=== PATIENT | male | born 1975 | race Caucasian/White ===

== ENCOUNTER 2017-09-26 18:20 | Inpatient (IN) | payer SELFPAY ==
[~2017-09-26] VITALS: Ht 165.1 cm; Wt 85.3 kg
--- NOTE | 2017-09-26 19:50 | NUR ---
PT TO ER BED
--- NOTE | 2017-09-26 20:00 | NUR ---
pt is in bed #15 c/o abd pain. pt is writhing in the bed, guarding his lower abd. pt is on the monitor and continuous pulse ox.
[2017-09-26] MEDS ORDERED: FAMOTIDINE/PF INJ 20 MG/2 ML VIAL IV ONE ×2 (20:30→20:44)
[2017-09-26] MEDS ORDERED: MAG HYDROX/AL HYDROX/SIMETH 30 ML UDC PO ONE (20:30)
[2017-09-26] MEDS ORDERED: IV NS 0.9% 1,000 ML BAG IV ONE (20:30)
[2017-09-26 20:35] LABS: BASOPHILS # (AUTO) 0.5 /CMM (0.0-0.2); BASOPHILS % (AUTO) 2.7 % (0.0-2.0); EOSINOPHILS # (AUTO) 0.5 /CMM (0.0-0.7); EOSINOPHILS % (AUTO) 3.1 % (0.0-6.0); HEMATOCRIT 37 % (39-51); HEMOGLOBIN 12.3 g/dL (13.5-17.5); LYMPHOCYTES # (AUTO) 3.2 /CMM (0.8-4.8); LYMPHOCYTES % (AUTO) 18.9 % (20.0-44.0); MEAN CORPUSCULAR HEMOGLOBIN 28 PG (26.0-33.0); MEAN CORPUSCULAR HGB CONC 33 g/dl (31.0-36.0); MEAN CORPUSCULAR VOLUME 83 fL (80-96); MONOCYTES # (AUTO) 1.4 /CMM (0.1-1.30); MONOCYTES % (AUTO) 8.4 % (2.0-12.0); NEUTROPHILS # (AUTO) 11.6 /CMM (1.8-8.9); NEUTROPHILS % (AUTO) 66.9 % (43.0-81.0); PLATELET COUNT (AUTO) 529 /CMM (150-450); RDW COEFFICIENT OF VARIATION 12.6 (11.5-15.0); RED BLOOD CELL COUNT(AUTO) 4.47 MIL/uL (4.5-6.0); WHITE BLOOD COUNT (AUTO) 17.2 K/uL (4.3-11.0)
[2017-09-26] MEDS ORDERED: MAG HYDROX/AL HYDROX/SIMETH 30 ML UDC ONE (20:44)
[2017-09-26 20:48] LABS: CALCIUM, SERUM 8.2 mg/dL (8.5-10.1); CREATININE 0.9 mg/dL (0.6-1.3); POTASSIUM 3.5 mmol/L (3.5-5.1)
[2017-09-26 20:54] LABS: ALBUMIN 3.3 g/dL (3.4-5.0); BILIRUBIN,TOTAL 0.2 mg/dL (0.2-1.0); TOTAL PROTEIN, SERUM 7.3 g/dL (6.4-8.2)
--- NOTE | 2017-09-26 23:20 | NUR ---
pt appears to be resting comfortably. nad noted. resp even and unlabored. will continue to monitor the pt.
[2017-09-26 23:35] LABS: APPEARANCE,URINE CLEAR (CLEAR); BILIRUBIN,URINE NEGATIVE (NEGATIVE); BLOOD, URINE NEGATIVE Ery/uL (NEGATIVE); COLOR,URINE YELLOW (YELLOW); KETONES,URINE 1+ (NEGATIVE); LEUKOCYTE ESTERASE ,URINE NEGATIVE (NEGATIVE); NITRITE, URINE NEGATIVE (NEGATIVE); PH,URINE 6.5 (5.0-8.0); PROTEIN,URINE NEGATIVE (NEGATIVE); UGLUCOSE NEGATIVE (NEGATIVE); UROBILINOGEN,URINE 0.2 EU/dL (0.2)
[2017-09-26 23:58] LABS: BACTERIA,URINE None seen /HPF (None Seen); MUCUS,URINE Few /LPF (None Seen); SQUAMOUS EPITHELIAL CELL,UR Few /HPF (None Seen); WBC,URINE 0-2 /HPF (0-3)
--- NOTE | 2017-09-27 00:40 | NUR ---
pt appears to be resting comfortably. nad noted. will continue to monitor the pt.
--- NOTE | 2017-09-27 00:52 | NUR ---
CALLED FOR M/S BED
--- NOTE | 2017-09-27 01:05 | NUR ---
M/S [facility] [id number]
--- NOTE | 2017-09-27 01:07 | NUR ---
CALLING REPORT TO MS NURSE.
[2017-09-27] MEDS ORDERED: Z GUARD REMEDY 2 OZ OINT TP PRN (01:30)
[2017-09-27] MEDS ORDERED: ZOLPIDEM TARTRATE 5 MG TABLET PO PRN (01:30)
[2017-09-27] MEDS ORDERED: HYDROCODONE/APAP 5/325MG 1 EACH TABLET PO PRN (01:30)
[2017-09-27] MEDS ORDERED: MAGNESIUM HYDROXIDE 30 ML UDC PO PRN (01:30)
[2017-09-27] MEDS ORDERED: IV NS 0.9% 1,000 ML BAG IV ONE (01:30)
[2017-09-27] MEDS ORDERED: ACETAMINOPHEN 325 MG TABLET PO PRN (01:30)
[2017-09-27] MEDS ORDERED: ONDANSETRON HCL/PF 4 MG/2 ML VIAL IVP PRN (01:30)
[2017-09-27] MEDS ORDERED: MORPHINE SULFATE INJ 4 MG/ML DISP.SYRIN IV PRN (01:30)
[2017-09-27] MEDS ORDERED: PIPERACILLIN /TAZOBACTAM 3.375 G in IV D5W 50 ML IV ONE (01:30)
[2017-09-27] MEDS ORDERED: MAG HYDROX/AL HYDROX/SIMETH 30 ML UDC PO PRN (01:30)
[2017-09-27] MEDS ORDERED: PIPERACILLIN /TAZOBACTAM 3.375 G VIAL IV ONE (01:41)
[2017-09-27 02:15] VITALS: BP 126/67
--- NOTE | 2017-09-27 02:15 | NUR ---
RN NOTES RECEIVED PATIENT FROM ER FOR DX ABDOMINAL PAIN. PATIENT AO X 3, ABLE TO MAKE NEEDS KNOWN. NO ACUTE DISTRESS NOTED. DENIES ANY PAIN AT THIS TIME. IV SITE PATENT, INTACT; FLUSHED. SKIN INTACT. SAFETY REMINDERS GIVEN. ORIENTED TO ROOM AND UNIT. ON LOW BED WITH BILATERAL UPPER SIDE RAILS UP. CALL CURIEL WITHIN EASY REACH. WILL CONTINUE TO MONITOR.
[2017-09-27] MEDS: IV NS 0.9% 1,000 ML IV SCH ×3 (02:36→21:49)
[2017-09-27] MEDS ORDERED: PIPERACILLIN /TAZOBACTAM 2.25 G in IV D5W 50 ML IV SCH (06:00)
--- NOTE | 2017-09-27 06:00 | NUR ---
RN NOTES PATIENT ASLEEP, EASILY AROUSABLE. RESPIRATIONS EVEN. NO SIGNS OF PAIN NOTED. DUE MED GIVEN WITH NO ASE NOTED. NEEDS ATTENDED. KEPT CLEAN AND DRY. SAFETY PRECAUTIONS AND COMFORT MEASURES IN PLACE. WILL GIVE REPORT TO DAY SHIFT FOR CONTINUITY OF CARE.
[2017-09-27] MEDS ORDERED: PIPERACILLIN /TAZOBACTAM 2.25 G VIAL IV ONE (06:27)
[2017-09-27 08:00] VITALS: BP 114/59
--- NOTE | 2017-09-27 08:00 | NUR ---
MS 2 RN AM NOTES RECEIVED PATIENT AO X 3, ABLE TO MAKE NEEDS KNOWN. SLEEPING COMFORTABLY BUT AROUSABLE.NO ACUTE DISTRESS NOTED. DENIES ANY PAIN AT THIS TIME. IV SITE PATENT, WITH IVF OF NS AT 100 ML/HR FLUSHED AND INFUSING WELL.PT KEEPS BENDING HIS ARM AND IS NON COMPLIANT IN STRAIGHTENING HIS ARM.PT WANTS TO EAT BUT EXPLAINED HE'S NPO AND EXPLAINED THE REASON FOR BEING NPO. PT GETS ANGRY AND C/O SAYING "THIS IS A STUPID HOSPITAL AND I HATE THIS HOSPITAL!!!" SEVERAL TIMES.HE ADDED THAT THE [facility]UPID [facility] BROUGHT HIM HERE.SKIN INTACT. ON LOW BED WITH BILATERAL UPPER SIDE RAILS UP. CALL CURIEL WITHIN EASY REACH. WILL CONTINUE TO MONITOR.
[2017-09-27] MEDS: PANTOPRAZOLE 40 MG VIAL IV SCH (09:40)
[2017-09-27] MEDS: PIPERACILLIN /TAZOBACTAM 3.375 G in IV D5W 50 ML IV SCH ×3 (12:42→23:36)
[2017-09-27 16:00] VITALS: BP 116/69
--- NOTE | 2017-09-27 16:00 | NUR ---
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
--- NOTE | 2017-09-27 18:11 | NUR ---
PARRISH DEAN STATED THAT DR JARQUIN WILL BE HANDLING THE GI CONSULT FOR THE PT.CALLED DR JARQUIN AND SPOKE TO HIM ON THE PHONE AND MADE HIM AWARE.
--- NOTE | 2017-09-27 18:47 | NUR ---
PT RESTING IN BED WITH NO C/O OF PAIN OR DISTRESS.WITH ONGOING IVF INFUSING WELL.CALL LIGHT PLACED WITHIN WELL.
--- NOTE | 2017-09-27 19:45 | NUR ---
RN OPENING NOTES RECEIVED REPORT FROM DAYSHIFT RN JACKIE. FOUND Pt AWAKE, NEEDING TO GO TO THE RESTROOM. NO S/S OF ACUTE DISTRESS OR SOB NOTED. Pt IS A/OX4, VERBAL, ABLE TO MAKE NEEDS KNOWN. IV ACCESS ON LAC #2OG. IVF NS @100ML/HR. SAFETY MEASURES IN PLACE. BED LOW, LOCKED, HOB ELEVATED, SIDE RAILS UP, CALL LIGHT AND BEDSIDE TABLE WITHIN REACH. WILL CONTINUE TO MONITOR Pt THROUGHOUT THE NIGHT FOR SAFETY.
[2017-09-27 20:00] VITALS: BP 127/73
[2017-09-28] MEDS: PIPERACILLIN /TAZOBACTAM 3.375 G in IV D5W 50 ML IV SCH ×2 (06:35→12:53)
[2017-09-28] MEDS: PANTOPRAZOLE 40 MG VIAL IV SCH (06:36)
--- NOTE | 2017-09-28 06:45 | NUR ---
RN CLOSING NOTES NO SIGNIFICANT CHANGES IN Pt's CONDITION. Pt REMAINS IN STABLE CONDITION. NO S/S OF ACUTE DISTRESS OR SOB NOTED DURING THE NIGHT. ALL NEEDS MET AND ATTENDED TO. SAFETY MEASURES IN PLACE. WILL ENDORSE TO DAYSHIFT RN FOR Pt's MARITZA.
[2017-09-28 07:21] LABS: BASOPHILS # (AUTO) 0.1 /CMM (0.0-0.2); BASOPHILS % (AUTO) 0.7 % (0.0-2.0); EOSINOPHILS # (AUTO) 0.5 /CMM (0.0-0.7); EOSINOPHILS % (AUTO) 5.1 % (0.0-6.0); HEMATOCRIT 39 % (39-51); HEMOGLOBIN 12.8 g/dL (13.5-17.5); LYMPHOCYTES # (AUTO) 2.7 /CMM (0.8-4.8); LYMPHOCYTES % (AUTO) 26.9 % (20.0-44.0); MEAN CORPUSCULAR HEMOGLOBIN 28 PG (26.0-33.0); MEAN CORPUSCULAR HGB CONC 33 g/dl (31.0-36.0); MEAN CORPUSCULAR VOLUME 84 fL (80-96); MONOCYTES # (AUTO) 0.8 /CMM (0.1-1.30); MONOCYTES % (AUTO) 7.4 % (2.0-12.0); NEUTROPHILS # (AUTO) 6.1 /CMM (1.8-8.9); NEUTROPHILS % (AUTO) 59.9 % (43.0-81.0); PLATELET COUNT (AUTO) 571 /CMM (150-450); RDW COEFFICIENT OF VARIATION 14.2 (11.5-15.0); RED BLOOD CELL COUNT(AUTO) 4.58 MIL/uL (4.5-6.0); WHITE BLOOD COUNT (AUTO) 10.1 K/uL (4.3-11.0)
[2017-09-28 07:45] LABS: ALBUMIN 2.9 g/dL (3.4-5.0); BILIRUBIN,DIRECT 0.1 mg/dL (0.0-0.2); BILIRUBIN,TOTAL 0.3 mg/dL (0.2-1.0); CALCIUM, SERUM 8.2 mg/dL (8.5-10.1); CREATININE 0.9 mg/dL (0.6-1.3); MAGNESIUM 2.3 mg/dL (1.8-2.4); PHOSPHORUS 3.6 mg/dL (2.5-4.9); POTASSIUM 3.7 mmol/L (3.5-5.1); TOTAL PROTEIN, SERUM 7.1 g/dL (6.4-8.2)
[2017-09-28] MEDS: IV NS 0.9% 1,000 ML IV SCH (07:56)
[2017-09-28 08:00] VITALS: BP 127/70
[2017-09-28] MEDS ORDERED: IV NS 0.9% 1,000 ML IV PRN (11:30)
--- NOTE | 2017-09-28 13:45 | NUR ---
RN NOTES: PATIENT DISCHARGED PER DR REYNA'S ORDERS. PATIENT STABLE. AOX4. NONLABORED BREATHING NOTED ON ROOM AIR. VS WNL. PATIENT STABLE THROUGHOUT SHIFT. NO NAUSEA NOR VOMITING NOTED DURING SHIFT. ALL BELONGINGS RETURNED TO PATIENT. IV LINE REMOVED. PATIENT EDUCATED ON EXISTCARE AND DR REYNA'S INSTRUCTIONS. VERBALIZED UNDERSTANDING. PATIENT GIVEN TAXI VOUCHER TO GO HOME. ACCOMPANIED TO TAXI WITH STAFF MEMBER.
== END 2017-09-28 13:45 | disposition home or self-care (01) | DRG 445 ==
LOC: ER 18:34 → MEDSG2 09-27 01:20
PROVIDERS: ADMIT Internal Medicine; ATTEND Internal Medicine
DX: K80.70 Calculus of gallbladder and bile duct without cholecystitis without obstruction (principal); E87.1 Hypo-osmolality and hyponatremia; D72.829 Elevated white blood cell count, unspecified; F15.10 Other stimulant abuse, uncomplicated; F17.200 Nicotine dependence, unspecified, uncomplicated; K59.00 Constipation, unspecified
CPT/HCPCS: 36415; 76705-TC; 80048-TC; 80053-TC; 80076-TC; 80305; 81000-TC; 83690-TC; 83735-TC; 84100-TC; 85025-TC; 87081-TC; A4606; C9113; G0480; J2543; J3490; J7030; J7060; Z7610